=== PATIENT | male | born 1990 | race Caucasian/White ===

== ENCOUNTER 2017-04-26 16:35 | Emergency (ER) | payer BC ==
[2017-04-26] MEDS ORDERED: IBUPROFEN 600 MG TABLET (FP) PO ONE ×2 (16:58→17:27)
--- NOTE | 2017-04-26 16:58 | PDOC ---
Rapid Medical Evaluation Time Seen by Provider: 04/26/17 16:56 Medical Evaluation: Allergies Allergy/AdvReac Type Severity Reaction Status Date / Time No Known Allergies Allergy Verified 01/23/16 18:17 04/26/17 16:56 I have performed a brief in person evaluation of this patient. The patient presents with chief complaint of : sore throat for one week Pertinent PE findings: erythema to pharynx I have ordered the following: rapid strep The patient will proceed to the ER for further evaluation.
[2017-04-26 16:59] VITALS: BP 125/70; PULSE 83; TEMP 99.1; BMI 23.3
--- NOTE | 2017-04-26 18:09 | PDOC ---
History of Present Illness - General Chief Complaint: Sore Throat Stated Complaint: FATIGUE Time Seen by Provider: 04/26/17 16:56 Past History - Past Medical History Allergies/Adverse Reactions: Allergies Allergy/AdvReac Type Severity Reaction Status Date / Time No Known Allergies Allergy Verified 04/26/17 16:58 Home Medications: Ambulatory Orders Amoxicillin - [Amoxicillin 500mg Capsule -] 500 mg PO BID #14 capsule 04/26/17 Ibuprofen 800 mg PO TID #30 tablet 04/26/17 COPD: No - Suicide/Smoking/Psychosocial Hx Smoking History: Current every day smoker Have you smoked in the past 12 months: Yes Number of Cigarettes Smoked Daily: 5 Information on smoking cessation initiated: No 'Breaking Loose' booklet given: 09/19/14 Hx Alcohol Use: Yes (SOCIAL) Drug/Substance Use Hx: No Substance Use Type: None Hx Substance Use Treatment: No *Physical Exam - Vital Signs Last Vital Signs Temp Pulse Resp BP Pulse Ox 99.1 F 83 20 125/70 99 04/26/17 16:55 04/26/17 16:55 04/26/17 16:55 04/26/17 16:55 04/26/17 16:55 ED Treatment Course - ADDITIONAL ORDERS Additional order review: 04/26/17 17:00 Group A Strep Rapid Antigen - Final Throat - Medications Given in the ED: ED Medications Discontinued Medications Generic Name Dose Route Start Last Admin Trade Name Randy PRN Reason Stop Dose Admin Ibuprofen 600 mg 04/26/17 16:58 04/26/17 17:29 Motrin - PO 04/26/17 16:59 600 mg ONCE ONE Administration *DC/Admit/Observation/Transfer Diagnosis at time of Disposition: Pharyngitis Qualifiers: Pharyngitis/tonsillitis etiology: unspecified etiology Qualified Code(s): J02.9 - Acute pharyngitis, unspecified Otitis media Qualifiers: Otitis media type: suppurative Chronicity: acute Laterality: left Recurrence: not specified as recurrent Spontaneous tympanic membrane rupture: without spontaneous rupture Qualified Code(s): H66.002 - Acute suppurative otitis media without spontaneous rupture of ear drum, left ear - Discharge Dispostion Disposition: HOME Condition at time of disposition: Good Admit: No - Referrals Referrals: Harrison Casey MD [Staff Physician] - - Patient Instructions Printed Discharge Instructions: DI for Pharyngitis/Tonsillopharyngitis -- Adult , Middle Ear Infection Additional Instructions: Your Strep test was negative today. However, you do have an ear infection on exam. Please take the antibiotics as prescribed. You were prescribed amoxicillin. You may take ibuprofen as needed for pain. Do not exceed 3,000mg a day. Drink plenty of fluids and follow up with your primary doctor in one week. Return to the ED if you have worsening pain, fevers, chills, hearing changes, difficulty swallowing, or any changes in your symptoms - Post Discharge Activity Forms/Work/School Notes: Back to Work
== END 2017-04-26 18:21 | disposition home or self-care (01) ==
LOC: JERFT 16:35
DX: J02.9 Acute pharyngitis, unspecified (principal); H66.002 Acute suppurative otitis media without spontaneous rupture of ear drum, left ear
CPT/HCPCS: 87070; 87430; 99281-25

== ENCOUNTER 2017-05-15 14:47 | Emergency (ER) | payer BC ==
--- NOTE | 2017-05-15 15:12 | PDOC ---
Rapid Medical Evaluation Time Seen by Provider: 05/15/17 15:10 Medical Evaluation: Allergies Allergy/AdvReac Type Severity Reaction Status Date / Time No Known Allergies Allergy Verified 05/15/17 15:08 05/15/17 15:10 Pt presents to the ED: uri s/s intermittently x 3 weeks, no fever Pt on brief exam: no pharyngeal erythema, vss, lcta Pt ordered for: none Pt to proceed to the ED Discharge Disposition - Diagnosis Nasal congestion - Referrals - Patient Instructions - Post Discharge Activity
[2017-05-15 15:13] VITALS: BP 121/51; PULSE 85; TEMP 99.3; BMI 23.3
--- NOTE | 2017-05-15 16:01 | PDOC ---
History of Present Illness - General Chief Complaint: Cold Symptoms Stated Complaint: HEADACHES, THROAT PAIN Time Seen by Provider: 05/15/17 15:10 - History of Present Illness Initial Comments: 05/15/17 15:52 CHIEF COMPLAINT: cough, runny nose, sore throat HISTORY OF PRESENT ILLNESS: 27 yo M with no significant PMH [facility] with cold symptoms x 1 month. Patient reports that he was seen here and given amoxicillin, which he took for two days but then stopped "because I felt better, and it made my stomach feel weird." He denies any fever, chills, vomiting, or diarrhea. PAST MEDICAL HISTORY: Denies past medical history FAMILY HISTORY: Denies SOCIAL HISTORY:Denies tobacco, alcohol, illicit drug use. SURGICAL HISTORY: Denies ALLERGIES: No known drug allergies REVIEW OF SYSTEMS as per HPI PHYSICAL EXAM General Appearance: Well-appearing, appropriately dressed. No apparent distress. HEENT: Rhinorrhea, post nasal drip, nasal congestion. EOMI, PERRLA. No conjunctival pallor. No photophobia, scleral icterus. Respiratory/Chest: Lungs CTAB. Cardiovascular: RRR. S1, S2. Gastrointestinal/Abdominal: Normal bowel sounds. Abdomen soft, non-distended. No tenderness or rebound tenderness. No organomegaly, pulsatile mass, guarding , hernia, hepatomegaly, splenomegaly. Musculoskeletal/Extremities: Normal inspection. FROM of all extremities, normal capillary refill. Pelvis Stable. No CVA tenderness. No tenderness to extremities, pedal edema, swelling, erythema or deformity. Integumentary: Appropriate color, dry, warm. 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 Fully oriented, alert. Appropriate mood/affect. Motor strength 5/5. No appreciable EOM palsy, facial droop or sensory deficit. Past History - Past Medical History Allergies/Adverse Reactions: Allergies Allergy/AdvReac Type Severity Reaction Status Date / Time No Known Allergies Allergy Verified 05/15/17 15:08 Home Medications: Ambulatory Orders Azithromycin [Zithromax 250mg Tablets -] 250 mg PO UTDICT #6 tab 05/15/17 Benzonatate [Tessalon Pearls -] 100 mg PO TID PRN #21 capsule 05/15/17 COPD: No Other medical history: DENIES - Suicide/Smoking/Psychosocial Hx Smoking History: Current every day smoker Have you smoked in the past 12 months: Yes Number of Cigarettes Smoked Daily: 7 Information on smoking cessation initiated: No 'Breaking Loose' booklet given: 09/19/14 Hx Alcohol Use: Yes (SOCIAL) Drug/Substance Use Hx: No Substance Use Type: None Hx Substance Use Treatment: No *Physical Exam - Vital Signs Last Vital Signs Temp Pulse Resp BP Pulse Ox 99.3 F 85 19 121/51 96 05/15/17 15:08 05/15/17 15:08 05/15/17 15:08 05/15/17 15:08 05/15/17 15:08 Medical Decision Making - Medical Decision Making 05/15/17 16:01 27 yo M with no significant PMH presents to [facility] with cold symptoms x 1 month. -flu swab -[facility] *DC/Admit/Observation/Transfer Diagnosis at time of Disposition: Nasal congestion Sinusitis Qualifiers: Sinusitis location: unspecified location Chronicity: acute Recurrence: not specified as recurrent Qualified Code(s): J01.90 - Acute sinusitis, unspecified - Discharge Dispostion Disposition: HOME Condition at time of disposition: Stable Admit: No - Prescriptions Prescriptions: Azithromycin [Zithromax 250mg Tablets -] 250 mg PO UTDICT #6 tab Benzonatate [Tessalon Pearls -] 100 mg PO TID PRN #21 capsule PRN Reason: Cough - Referrals Referrals: Natasha Kurtz MD [Staff Physician] - - Patient Instructions Printed Discharge Instructions: DI for Sinusitis Additional Instructions: Please take medications as prescribed. Follow up with a primary care doctor if symptoms persist past 3-5 days. If you develop fever, chills, vomiting, diarrhea, or any new or worsening symptoms, please return to the ER. - Post Discharge Activity
== END 2017-05-15 17:00 | disposition home or self-care (01) ==
LOC: JERFT 14:47
DX: J01.90 Acute sinusitis, unspecified (principal)
CPT/HCPCS: 87804; 99281-25

== ENCOUNTER 2018-01-11 18:25 | Emergency (ER) | payer BC ==
[2018-01-11 18:31] VITALS: BP 119/73; PULSE 66; TEMP 98.1; BMI 24.2
--- NOTE | 2018-01-11 18:31 | PDOC ---
Rapid Medical Evaluation Time Seen by Provider: 01/11/18 18:28 Medical Evaluation: Allergies Allergy/AdvReac Type Severity Reaction Status Date / Time No Known Allergies Allergy Verified 05/15/17 15:08 01/11/18 18:28 I have performed a brief in-person evaluation of this patient. The patient presents with a chief complaint of: frequent nose bleeds and shortness of breath x 1 month. States last nosebleed today. Denies headache at present Pertinent physical exam findings are: NAD color and skin turgor good lungs clear bilaterally I have ordered the following: none The patient will proceed o the Ed for further evaluation.
--- NOTE | 2018-01-11 18:59 | PDOC ---
History of Present Illness - General Chief Complaint: Respiratory Stated Complaint: FACIAL PAIN Time Seen by Provider: 01/11/18 18:28 History Source: Patient Exam Limitations: No Limitations - History of Present Illness Initial Comments: CHIEF COMPLAINT: 27 y/o afebrile male with no significant PMH c/o frequent nose bleeds for the past months. HISTORY OF PRESENT ILLNESS: For the past 1 month the patient has been noticing frequent nose bleeds, always on his left side, and this week he's had them every day. They usually start out of nowhere and resolve on their own within a few minutes. He does work for [employer] but states he uses a respirator while around the chemicals. He denies trauma to nose, dizziness, n/v /d, GOLDMAN and all other symptoms. He does not have a PCP. Vital signs on arrival are within normal limits. REVIEW OF SYSTEMS: GENERAL/CONSTITUTIONAL: No fever/chills. No weakness. No weight change. HEAD, EYES, EARS, NOSE AND THROAT: +frequent nose bleeds. No change in vision. No ear pain or discharge. No sore throat. CARDIOVASCULAR: No chest pain or shortness of breath. RESPIRATORY: No cough, wheezing, or hemoptysis. GASTROINTESTINAL: No abd pain, nausea, vomiting, diarrhea. GENITOURINARY: No dysuria, frequency, or change in urination. MUSCULOSKELETAL: No joint or muscle swelling or pain. No neck or back pain. SKIN: No rash or easy bruising. NEUROLOGIC: No headache, vertigo, loss of consciousness, or loss of sensation. PHYSICAL EXAM: GENERAL: The patient is awake, alert, and fully oriented, in no acute distress. HEAD: Normal with no signs of trauma. ENT: Pupils equal, round and reactive to light, extraocular movements intact, sclera anicteric, conjunctiva clear. Inflammed nasal turbinates b/l nares. NO septal hematomas. No active nose bleeding. LUNGS: Clear to auscultation bilaterally. Normal excursion. No respiratory distress or use of accessory muscles. CV: RRR, S1/S2, no MRG. Cap refill < 2 sec. ABDOMEN: Soft, non-distended, non-tender even to deep palpation, no hepatomegaly or splenomegaly, no masses. EXTREMITIES: Normal range of motion, no edema. NEUROLOGICAL: Normal speech, normal gait. CN II-XII grossly intact. SKIN: Warm, dry, normal turgor, no rashes or lesions noted. Past History - Past Medical History Allergies/Adverse Reactions: Allergies Allergy/AdvReac Type Severity Reaction Status Date / Time No Known Allergies Allergy Verified 01/11/18 18:29 Home Medications: Ambulatory Orders Oxymetazoline HCl [Afrin] 1 spray NS TID #1 bottle 01/11/18 COPD: No - Suicide/Smoking/Psychosocial Hx Smoking History: Current every day smoker Have you smoked in the past 12 months: Yes Number of Cigarettes Smoked Daily: 7 Information on smoking cessation initiated: No 'Breaking Loose' booklet given: 09/19/14 Hx Alcohol Use: Yes (SOCIAL) Drug/Substance Use Hx: No Substance Use Type: None Hx Substance Use Treatment: No *Physical Exam - Vital Signs Last Vital Signs Temp Pulse Resp BP Pulse Ox 98.1 F 66 16 119/73 100 01/11/18 18:29 01/11/18 18:29 01/11/18 18:29 01/11/18 18:29 01/11/18 18:29 ED Treatment Course - LABORATORY CBC & Chemistry Diagram: 01/11/18 19:00 Medical Decision Making - Medical Decision Making A/P: 27 y/o male with frequent nose bleeds. May be results of chemical exposure to work/dry environment. Will send CBC. CBC normal Will send home with rx for nasal spray and f/u with Dr. Thrasher. The patient verbalizes understanding of all instructions, has no further questions and is awaiting discharge. *DC/Admit/Observation/Transfer Diagnosis at time of Disposition: Frequent nosebleeds - Discharge Dispostion Disposition: HOME Condition at time of disposition: Good - Prescriptions Prescriptions: Oxymetazoline HCl [Afrin] 1 spray NS TID #1 bottle - Referrals Referrals: Rahat Thrasher MD [Staff Physician] - - Patient Instructions Printed Discharge Instructions: DI for Nosebleed Additional Instructions: Discharge Instructions: -Your lab results were normal -A prescription for a nose spray was sent to your pharmacy -Please call Dr. Thrashre tomorrow and schedule a follow up appointment -Return to the ER with any worsening or concerning symptoms - Post Discharge Activity
[2018-01-11 19:13] LABS: BASO % 0.9 % (0-2.0); EOS % 6.3 % (0-4.5); HEMATOCRIT 40.9 % (35.4-49); HEMOGLOBIN 14.3 GM/dL (11.7-16.9); LYMPH % 32.6 % (8-40); MCH 31.8 pg (25.7-33.7); MCHC 34.9 g/dl (32.0-35.9); MEAN CELL VOLUME 91.2 fl (80-96); MEAN PLT VOLUME 8.4 fl (7.5-11.1); MONO % 7.3 % (3.8-10.2); NEUT % 52.9 % (42.8-82.8); PLATELET COUNT 241 K/MM3 (134-434); RBC 4.48 M/mm3 (4.00-5.60); RDW 13.2 % (11.9-15.9); WHITE BLOOD COUNT 7.6 K/mm3 (4.0-10.0)
== END 2018-01-11 19:33 | disposition home or self-care (01) ==
LOC: JERFT 18:25
DX: R04.0 Epistaxis (principal)
CPT/HCPCS: 36415; 85025; 99281-25

== ENCOUNTER 2018-01-21 16:02 | Emergency (ER) | payer BC ==
[2018-01-21 16:19] VITALS: BP 122/80; PULSE 74; TEMP 98.4; BMI 23.3
--- NOTE | 2018-01-21 17:02 | PDOC ---
History of Present Illness - General Chief Complaint: Ear Problem Stated Complaint: COLD SYMPTOMS Time Seen by Provider: 01/21/18 16:33 History Source: Patient Exam Limitations: Clinical Condition - History of Present Illness Initial Comments: 01/21/18 16:58 Patient with no sig past medical history present with complain of 1 week history of right ear pain, nasal congestion, headache, throat discomfort and sinus pain. Denies fever, cough, nausea or vomiting. Denies painful to swallow now. Denies any other symptoms Timing/Duration: 1 week Past History - Past Medical History Allergies/Adverse Reactions: Allergies Allergy/AdvReac Type Severity Reaction Status Date / Time No Known Allergies Allergy Verified 01/21/18 16:46 Home Medications: Ambulatory Orders Azithromycin [Zithromax Tri-Hermelindo (3 DAYS) -] 500 mg PO DAILY #3 tablet 01/21/18 Ipratropium [place] 2 spray NS BID PRN #1 spray 01/21/18 Neomycin/Polymyxin B Sulf/Hc [Ejazkfds-Rofpstuex-Jy Ear Susp] 4 drop OT TID 5 Days #1 bottle 01/21/18 Cardiac Disorders: No CVA: No COPD: No DVT: No - Suicide/Smoking/Psychosocial Hx Smoking History: Current some day smoker Have you smoked in the past 12 months: Yes Number of Cigarettes Smoked Daily: 10 Information on smoking cessation initiated: Yes 'Breaking Loose' booklet given: 09/19/14 Hx Alcohol Use: No Drug/Substance Use Hx: No Substance Use Type: None Hx Substance Use Treatment: No Review of Systems - Review of Systems Able to Perform ROS?: Yes Is the patient limited Stateless proficient: No Constitutional: No: Chills, Diaphoresis, Fever, Malaise, Night Sweats, Weakness HEENTM: Yes: See HPI, Ear Pain (right ear), Nose Congestion. No: Eye Pain, Blurred Vision, Tearing, Recent change in vision, Double Vision, Cataracts, Ocular Prothesis, Ear Discharge, Nose Pain, Tinnitus, Nose Bleeding, Hearing Loss, Throat Pain, Throat Swelling, Mouth Pain, Dental Problems, Difficulty Swallowing, Mouth Swelling, Other Respiratory: No: Cough, Orthopnea, Shortness of Breath, SOB with Exertion, SOB at Rest, Stridor, Wheezing, Productive cough, Hemoptysis, Other Cardiac (ROS): No: Chest Pain, Edema, Irregular Heart Rate, Lightheadedness, Palpitations, Syncope, Chest Tightness, Other ABD/GI: No: Abdominal Distended, Abd. Pain w/ defecation, Blood Streaked Bowels , Constipated, Diarrhea, Difficulty Swallowing, Nausea, Poor Appetite, Poor Fluid Intake, Rectal Bleeding, Vomiting, Indigestion, Abdominal cramping, Tarry Stools, Other All Other Systems: Reviewed and Negative *Physical Exam - Vital Signs Last Vital Signs Temp Pulse Resp BP Pulse Ox 98.4 F 74 20 122/80 97 01/21/18 16:17 01/21/18 16:17 01/21/18 16:17 01/21/18 16:17 01/21/18 16:17 - Physical Exam Comments: 01/21/18 17:04 GENERAL: Well developed, well nourished. Awake and alert. No acute distress. HEENT: Moderate erythema in right external ear canal. Left ear canal normal. Tympanic membranes normal bilaterally. Normocephalic, atraumatic. PERRLA, EOMI. No conjunctival pallor. Sclera are non-icteric. Moist mucous membranes. Oropharynx is clear. NECK: Supple. Full ROM. CARDIOVASCULAR: Regular rate and rhythm. No murmurs, rubs, or gallops. Distal pulses are 2+ and symmetric. PULMONARY: No evidence of respiratory distress. Lungs clear to auscultation bilaterally. No wheezing, rales or rhonchi. ABDOMINAL: Soft. Non-tender. Non-distended. No rebound or guarding. No organomegaly. Normoactive bowel sounds. MUSCULOSKELETAL Normal range of motion at all joints. EXTREMITIES: No cyanosis. No clubbing. No edema. No calf tenderness. SKIN: Warm and dry. Normal capillary refill. No rashes. No jaundice. NEUROLOGICAL: Alert, awake, appropriate. Gait is normal without ataxia. PSYCHIATRIC: Cooperative. Good eye contact. Appropriate mood General Appearance: Yes: Nourished, Appropriately Dressed. No: Apparent Distress Medical Decision Making - Medical Decision Making 01/21/18 16:57 Patient with no sig past medical history present with complain of 1 week history of right ear pain, nasal congestion, headache, throat discomfort and sinus pain. 01/21/18 16:58 Exam significant for nasal congestion and moderate erythema in right ear canal. Patient will be treated antibiotics eardrops, nasal spray and Zithromax antibiotics with ENT follow-up *DC/Admit/Observation/Transfer Diagnosis at time of Disposition: Sinusitis Qualifiers: Sinusitis location: unspecified location Chronicity: acute Recurrence: non- recurrent Qualified Code(s): J01.90 - Acute sinusitis, unspecified Otitis externa Qualifiers: Otitis externa type: unspecified type Chronicity: acute Laterality: right Qualified Code(s): H60.501 - Unspecified acute noninfective otitis externa, right ear URI (upper respiratory infection) Qualifiers: URI type: unspecified URI Qualified Code(s): J06.9 - Acute upper respiratory infection, unspecified - Discharge Dispostion Disposition: HOME Condition at time of disposition: Stable Decision to Admit order: No - Prescriptions Prescriptions: Azithromycin [Zithromax Tri-Hermelindo (3 DAYS) -] 500 mg PO DAILY #3 tablet Ipratropium [place] 2 spray NS BID PRN #1 spray PRN Reason: nasal congestion Neomycin/Polymyxin B Sulf/Hc [Zjcbrxke-Pfbzbqtby-Ys Ear Susp] 4 drop OT TID 5 Days #1 bottle - Referrals Referrals: Jorge Turner MD [Staff Physician] - - Patient Instructions Printed Discharge Instructions: DI for Otitis Externa Additional Instructions: Take prescribed medication as prescribed. Follow-up with referred ENT if symptoms persist for more than 4 days - Post Discharge Activity
== END 2018-01-21 17:07 | disposition home or self-care (01) ==
LOC: JERFT 16:02
DX: J01.90 Acute sinusitis, unspecified (principal); H60.501 Unspecified acute noninfective otitis externa, right ear; J06.9 Acute upper respiratory infection, unspecified; F17.210 Nicotine dependence, cigarettes, uncomplicated
CPT/HCPCS: 99281-25

== ENCOUNTER 2018-12-04 22:06 | Emergency (ER) | payer BC ==
[2018-12-04 22:26] VITALS: BP 112/70; PULSE 86; TEMP 98.7; BMI 23.3
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
[2018-12-04] MEDS ORDERED: DIPHTH,PERTUSS(ACELL),TET 0.5 ML DISP.SYRIN IM ONE ×2 (23:04→23:32)
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
[2018-12-05] MEDS ORDERED: AMOX TR/POT CLAV 875MG/125MG TABLETS (FP) PO ONE (00:02)
[2018-12-05] MEDS ORDERED: AMOX TR/POT CLAV 875MG/125MG TABLETS (FP) ONE (00:24)
== END 2018-12-05 00:46 | disposition left against medical advice (07) ==
LOC: JER 22:06
PROC: 3E0234Z Introduction of Serum, Toxoid and Vaccine into Muscle, Percutaneous Approach (ICD-10-PCS; principal; 2018-12-04)
DX: S21.112A Laceration without foreign body of left front wall of thorax without penetration into thoracic cavity, initial encounter (principal); S21.212A Laceration without foreign body of left back wall of thorax without penetration into thoracic cavity, initial encounter; X99.1XXA Assault by knife, initial encounter; Y93.89 Activity, other specified; Y92.89 Other specified places as the place of occurrence of the external cause; Y99.8 Other external cause status
CPT/HCPCS: 90715; 99283-25

== ENCOUNTER 2019-06-14 01:38 | Emergency (ER) | payer BC ==
[2019-06-14] MEDS ORDERED: ACETAMINOPHEN 325 MG TABLET (FP) PO ONE (01:55)
[2019-06-14] MEDS ORDERED: SODIUM CHLORIDE 0.9% 500 ML INFUS.BAG IV ONE (01:55)
[2019-06-14] MEDS ORDERED: DIPHTH,PERTUSS(ACELL),TET 0.5 ML DISP.SYRIN IM ONE ×2 (01:56→03:51)
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
[2019-06-14 02:24] LABS: BASO % 0.8 % (0-2.0); EOS % 4.8 % (0-4.5); HEMATOCRIT 43.3 % (35.4-49); HEMOGLOBIN 15.3 GM/dL (11.7-16.9); LYMPH % 23.9 % (8-40); MCH 32.6 pg (25.7-33.7); MCHC 35.3 g/dl (32.0-35.9); MEAN CELL VOLUME 92.5 fl (80-96); MEAN PLT VOLUME 8.5 fl (7.5-11.1); MONO % 5.4 % (3.8-10.2); NEUT % 65.1 % (42.8-82.8); PLATELET COUNT 284 K/MM3 (134-434); RBC 4.68 M/mm3 (4.00-5.60); RDW 13.5 % (11.9-15.9); WHITE BLOOD COUNT 9.2 K/mm3 (4.0-10.0)
[2019-06-14] MEDS ORDERED: ACETAMINOPHEN 325 MG TABLET (FP) ONE (02:28)
[2019-06-14 02:35] LABS: INR 0.96 (0.83-1.09); PROTHROMBIN TIME (PATIENT) 11.3 SEC (9.7-13.0)
[2019-06-14 02:47] LABS: ALBUMIN 4.5 g/dl (3.4-5.0); BILIRUBIN,TOTAL 0.2 mg/dL (0.2-1); BLOOD UREA NITROGEN 8.1 mg/dL (7-18); CALCIUM 9.6 mg/dL (8.5-10.1); POTASSIUM 3.4 mmol/L (3.5-5.1); TOT PROT 8.2 g/dl (6.4-8.2)
[2019-06-14] MEDS ORDERED: LIDOCAINE HCL 2% (20ML MULTI-DOSE VIAL) ONE (03:19)
[2019-06-14] MEDS ORDERED: POTASSIUM CHLORIDE ORAL LIQUID 20 MEQ/15 ML PO ONE (03:46)
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
[2019-06-14 04:56] VITALS: TEMP 98.4; BMI 22.6
[2019-06-14 05:27] VITALS: BP 102/74; PULSE 106
--- NOTE | 2019-06-14 12:23 | EKG ---
Test Reason : Blood Pressure : / mmHG Vent. Rate : 114 BPM Atrial Rate : 114 BPM P-R Int : 154 ms QRS Dur : 086 ms QT Int : 330 ms P-R-T Axes : 074 071 020 degrees QTc Int : 454 ms SINUS TACHYCARDIA RIGHT ATRIAL ENLARGEMENT MINIMAL VOLTAGE CRITERIA FOR LVH, MAY BE NORMAL VARIANT WHEN COMPARED WITH ECG OF 13-SEP-2014 12:17, NO SIGNIFICANT CHANGE WAS FOUND Confirmed by SEAN WELCH MD ([id number]) on 06/14/2019 12:23:07 PM Referred By: Confirmed By:SEAN WELCH MD
== END 2019-06-14 04:24 | disposition home or self-care (01) ==
LOC: JER 01:38
PROC: 0HQ7XZZ Repair Abdomen Skin, External Approach (ICD-10-PCS; principal; 2019-06-14)
PROC: 3E0234Z Introduction of Serum, Toxoid and Vaccine into Muscle, Percutaneous Approach (ICD-10-PCS; 2019-06-14)
DX: S31.119A Laceration without foreign body of abdominal wall, unspecified quadrant without penetration into peritoneal cavity, initial encounter (principal); X99.9XXA Assault by unspecified sharp object, initial encounter; Y93.89 Activity, other specified; Y92.89 Other specified places as the place of occurrence of the external cause
CPT/HCPCS: 36415; 71045-TC-FY; 74177-TC; 80053; 80307; 85025; 85610; 85730; 86850; 86900; 86901; 90715; 93005; 93010; 99284-25; Q9967

== ENCOUNTER 2019-06-24 15:57 | Emergency (ER) | payer BC ==
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
== END 2019-06-24 16:38 | disposition home or self-care (01) ==
LOC: JER 15:57
DX: Z48.817 Encounter for surgical aftercare following surgery on the skin and subcutaneous tissue (principal); Z48.02 Encounter for removal of sutures
CPT/HCPCS: 99283-25